=== PATIENT | female | born 1965 | race Caucasian/White ===

== ENCOUNTER 2021-06-01 14:04 | Emergency (ER) | payer OTHER, SELFPAY ==
--- NOTE | ~2021-06-01 | XR_ITS ---
EXAMINATION: XR chest 1V portable EXAM DATE: 06/01/2021 15:36 INDICATION: Shortness of breath, COVID exposure, fever, loss of taste/smell. TECHNIQUE: Portable AP frontal chest x-ray was obtained. There is no prior study for comparison. FINDINGS: The lungs are clear. There are no pleural effusions. The cardiomediastinal silhouette is within normal limits. There is no pneumothorax suspected. The bones and soft tissues are unremarkab le. IMPRESSION: Clear lungs. Follow-up can be obtained if symptoms persist. Reviewed, dictated and finalized at location B.
[2021-06-01 14:14] VITALS: BP 115/82; PULSE 108; RESP 16; TEMP 37.2; O2SAT 95
--- NOTE | 2021-06-01 14:16 | ECG_ITS ---
Measurements Intervals [place] Rate: 95 P: 43 RI: 143 QRS: 44 QRSD: 79 T: -7 QT: 339 QTc: 427 Interpretive Statements SINUS RHYTHM POSSIBLE LEFT ATRIAL ENLARGEMENT ST-T WAVE ABNORMALITY IN ANT/INF LEADS- CONSIDER ISCHEMIA BASELINE ARTIFACT- I, II, III, AVR, AVL ABNORMAL ECG Electronically Signed On 06-01-2021 15:31:38 CDT by Alexander Huntley D.O.
[2021-06-01 14:41] LABS: Basophils Percent Auto 0.1 % (0.2-1.2); Hemoglobin 15.6 g/dL (12.0-15.0); Immature Granulocyte Absolute 0.03 K/mm3 (0.00-0.031); Immature Granulocyte Percent A 0.4 % (0-0.5); Lymphocytes Absolute Auto 0.63 K/mm3 (0.9-3.2); Lymphocytes Percent Auto 9.1 % (18.3-44.2); Mean Corpuscular HGB Conc 33.9 g/dl (32-36); Mean Corpuscular Hemoglobin 28.2 pg (26-34); Mean Corpuscular Volume 83.2 fl (80-100); Mean Platelet Volume 9.4 fl (7.4-10.4); Monocytes Absolute Auto 0.3 K/mm3 (0.1-0.6); Monocytes Percent Auto 4.2 % (2.6-8.5); Neutrophils Percent Auto 86.2 % (45.5-73.1); Platelet Count Result 178 k/mm3 (150-375); Red Blood Count 5.53 M/mm3 (4.2-5.4); Red Cell Distribution Width 13.8 % (11.5-14.5); White Blood Count 6.9 K/mm3 (4.5-10.0)
[2021-06-01 14:51] LABS: Alanine Aminotransferase 44 U/L (4-35); Albumin Level 4.5 g/dL (3.5-5.1); Alkaline Phosphatase 88 U/L (38-126); Anion Gap 14 mmol/L (8-16); Aspartate Amino Transferase 64 U/L (14-36); Bilirubin,Total 0.7 mg/dL (0.2-1.3); Blood Urea Nitrogen 20 mg/dL (7-17); Calcium 9.2 mg/dL (8.4-10.2); Carbon Dioxide 23 mmol/L (22-30); Chloride 98 mmol/L (98-107); Estimated CRCL calculation 65 ml/min; Estimated Glomerular Filt Rate > 60; Glucose 157 mg/dL (65-105); Potassium 3.6 mmol/L (3.4-5.0); Sodium 135 mmol/L (137-145)
[2021-06-01 15:27] VITALS: BP 152/92; PULSE 89; RESP 19; O2SAT 95
[2021-06-01 15:51] LABS: Add Urine Microscopic? YES; Appearance Urine Cloudy (Clear); Bacteria Urine 2+ /hpf; Bilirubin Urine Negative (Negative); Blood Urine Negative (Negative); Color Urine Yellow (Yellow); Glucose Urine UA Negative (Negative); Ketones Urine 1+ mg/dL (Negative); Leukocyte Esterase Ur Trace LEU/UL (Negative); Mucus Urine Few /lpf; Nitrate Urine Negative (Negative); Protein Urine 2+ mg/dL (Negative); Specific Grav Ur 1.026 (1.001-1.035); Squamous Epithelial Cell Urine Few /hpf (Few); Urobilinogen Urine Negative mg/dL (<2.0); WBC Urine 31-50 /hpf
--- NOTE | 2021-06-01 15:56 | ED.URI ---
HPI - URI/Sore Throat General Chief Complaint: Upper Respiratory Infection Stated Complaint: COVID?? Time Seen by Provider: 06/01/21 15:26 Source: patient and RN notes reviewed Mode of arrival: ambulatory Limitations: no limitations History of Present Illness HPI Narrative: This is a 55 year old female who presents for evaluation of possible covid. Patient went out with friends on . She developed headache on Saturday. She reports history of cluster headaches and migraines. She describes her headaches as intermittent sharp and dull. She has associated nausea, vomiting and she developed nonbloody diarrhea. She reports cough but she developed chest pain, leg pain or shortness of breath. She was evaluated at his primary care providers office today and she was referred to ER. She was given antiemetic in the office so she states her symptoms have improved. She reports her headache is only mild. She reports one of the ladies from her outing on is having URI symptoms but she has not gotten tested for covid yet. Related Data Allergies Allergy/AdvReac Type Severity Reaction Status Date / Time Sulfa (Sulfonamide Allergy Swelling Verified 06/01/21 16:55 Antibiotics) of Lip/Tongue/Throat Review of Systems Review of Systems: All systems reviewed & are unremarkable except as noted in HPI and below Constitutional: Constitutional: Denies chills and Denies fever(s) ENT: Reports nasal congestion and Denies sore throat Cardiovascular: Cardiovascular: Denies chest pain and Denies radiating jaw, neck or arm pain Respiratory: Respiratory: Reports cough and Denies dyspnea Gastrointestinal: Gastrointestinal: Denies abdominal pain, Reports diarrhea, Reports nausea and Reports vomiting Neurologic: Reports headache(s) [facility] Past Medical History Medical History (Updated 06/01/21 @ 17:44 by Tessa Wilcox MD) Cluster headache Hypothyroid Migraine Social History Social History (Updated 06/01/21 @ 15:58 by Tessa Wilcox MD) Smoking status: Never smoker Exam Const: General: no acute distress and alert Orientation/consciousness: patient oriented x3 HENMT: Head: normocephalic and atraumatic Face and sinus: face symmetric Mouth: Yes Normal oral and palatal mucosa present, Yes lip normal, Yes oropharynx normal and Yes moist mucous membranes Throat: posterior oropharynx normal, tonsils normal and uvula midline Eyes: Pupils: Equal, round and reactive pupils present EOM: EOMs intact bilaterally Chest: Chest palpation & inspection: normal inspection of the chest Resp: Effort & Inspection: normal respiratory effort and no retractions Auscultation: clear to auscultation bilaterally Cardio: Rate: regular rate Rhythm: regular rhythm Heart sounds: no murmurs GI: GI Palp: Yes Soft to palpation, No Tenderness to palpation present (GI) and No Guarding due to palpation present (GI) Auscultation: normal bowel sounds Skin: General skin exam: normal color Rashes: no rashes Neuro: General: patient oriented x3, moves all extremities and CN's II-XI intact bilaterally Course Reevaluation(s) Reevaluation #1: I have reviewed patient that she will be treated for a UTI. She has not pneumonia on xray and she is not requiring oxygen. She was told to return if she developed shortness of breath or chest pain. She has been tested for covid and she understands. Date: 06/01/21 Time: 17:40 Vital Signs Vital signs: Vital Signs Temperature 99.0 F 06/01/21 14:14 Pulse Rate 108 H 06/01/21 14:14 Respiratory Rate 16 06/01/21 14:14 Blood Pressure 115/82 06/01/21 14:14 Pulse Oximetry 95 06/01/21 14:14 Temperature 99.0 F 06/01/21 14:14 Pulse Rate 88 06/01/21 18:14 Respiratory Rate 16 06/01/21 18:14 Blood Pressure 125/74 06/01/21 18:14 Pulse Oximetry 95 06/01/21 18:14 MDM - URI/Sore Throat Lab Data Attestation: I reviewed the patient's lab results. Result steven
[2021-06-01 16:30] LABS: Troponin I < 0.012 ng/mL (0.000-0.034)
[2021-06-01] MEDS: diphenhydrAMINE HCl INJ 50 MG/ML VIAL 25 MG IV PUSH (16:43)
[2021-06-01] MEDS: METOCLOPRAMIDE HCL INJ 10 MG/2 ML VIAL IV PUSH (16:44)
[2021-06-01 16:48] VITALS: BP 127/77; PULSE 88; RESP 25; O2SAT 97
[2021-06-01] MEDS: LACTATED RINGERS 1,000 ML 999 ML IV CONT (16:53)
[2021-06-01 17:41] VITALS: BP 108/71; PULSE 90; RESP 20; O2SAT 95
[2021-06-01 18:14] VITALS: BP 125/74; PULSE 88; RESP 16; O2SAT 95
[2021-06-02 17:20] LABS: SARS-CoV-2 RNA PCR Positive
== END 2021-06-01 18:23 | disposition home or self-care (01) ==
PROVIDERS: Emergency Medicine; Emergency Provider General Practice; PCP Internal Medicine
DX: U07.1 COVID-19 (principal); N39.0 Urinary tract infection, site not specified
CPT/HCPCS: 36415; 71045; 80053; 81001; 84484; 85025; 87077; 87086; 87088; 87186; 87804; 93005; 96361; 96374; 96375; 99284; C9803; J1200; J2765; J7120; U0003; U0005